=== PATIENT | female | born 1965 | race Hispanic/Latino ===

== ENCOUNTER 2022-12-04 13:21 | Emergency (ER) | payer OTHER ==
[~2022-12-04] VITALS: Ht 162.6 cm; Wt 68.0 kg
[2022-12-04] MEDS ORDERED: IBUP-2070 PO (16:27)
[2022-12-04 16:54] VITALS: BP 140/93; PULSE 61; RESP 18; O2SAT 97
== END 2022-12-04 16:55 | disposition home or self-care (01) ==
LOC: EDH 13:21
DX: S00.33XA Contusion of nose, initial encounter (principal); S80.211A Abrasion, right knee, initial encounter; I10 Essential (primary) hypertension; E78.00 Pure hypercholesterolemia, unspecified; Z90.49 Acquired absence of other specified parts of digestive tract; Z98.890 Other specified postprocedural states; Z88.8 Allergy status to other drugs, medicaments and biological substances; W01.0XXA Fall on same level from slipping, tripping and stumbling without subsequent striking against object, initial encounter; Y93.01 Activity, walking, marching and hiking; Y92.89 Other specified places as the place of occurrence of the external cause; Y99.8 Other external cause status
CPT/HCPCS: 70450; 70486; 71045; 73562